=== PATIENT | female | born 1995 | race African-American/Black ===

== ENCOUNTER 2020-12-30 16:22 | Emergency (ER) | payer OTHER ==
[~2020-12-30] VITALS: Ht 165.1 cm; Wt 83.0 kg
[2020-12-30 19:28] LABS: Basophils # (auto) 0 10 ^3/uL (0-0.2); Basophils % (auto) 0.4 % (0.0-2.0); Eosinophils # (auto) 0.1 10 ^3/uL (0-0.8); Eosinophils % (auto) 1.2 % (0.0-7.0); Hematocrit 35.5 % (36.0-46.0); Lymphocytes # (auto) 1.7 10 ^3/uL (0.4-5.4); Lymphocytes % (auto) 24.6 % (10.0-50.0); Mean Corpuscular Hemoglobin 27.4 pg (28.0-32.0); Mean Corpuscular Hgb Conc. 33.9 g/dL (32.0-36.0); Mean Corpuscular Volume 80.7 fL (80.0-100.0); Monocytes # (auto) 0.5 10 ^3/uL (0-1.3); Monocytes % (auto) 6.7 % (0.0-12.0); Neutrophils # (auto) 4.7 10 ^3/uL (1.6-8.6); Neutrophils % (auto) 67.1 % (37.0-80.0); Red Cell Distribution Width 14.1 % (11.8-14.3)
[2020-12-30 21:20] LABS: Urine Bacteria FEW /hpf (None Seen); Urine Blood Negative /uL (Negative); Urine Hyaline Cast FEW /lpf (0 - 2); Urine Specific Gravity 1.022 (1.001-1.035); Urine WBC 1 /hpf (0 - 5)
[2020-12-30 22:27] VITALS: BP 110/62
== END 2020-12-30 22:29 | disposition home or self-care (01) ==
LOC: ER 16:24
DX: O26.893 Other specified pregnancy related conditions, third trimester (principal); Z3A.18 18 weeks gestation of pregnancy
CPT/HCPCS: 36415; 76805; 81001; 84702; 85025

== ENCOUNTER 2021-05-31 00:02 | Observation (INO) | payer OTHER ==
[~2021-05-31] VITALS: Ht 165.1 cm; Wt 108.9 kg
[2021-05-31] MEDS ORDERED: PREN1CAP PO (00:34)
[2021-05-31 01:00] LABS: Urine Bacteria FEW /hpf (None Seen); Urine Blood Negative /uL (Negative); Urine WBC 1 /hpf (0 - 5)
[2021-05-31 01:10] LABS: Alcohol, Urine < 3.0 mg/dL (0-10); Amphetamine Screen, Urine NEGATIVE (NEGATIVE); Barbiturate Scree,Urine NEGATIVE (NEGATIVE); Benzodiazephine Screen, Urine NEGATIVE (NEGATIVE); Cannabinoid Screen, Urine NEGATIVE (NEGATIVE); Cocaine Screen, Urine NEGATIVE (NEGATIVE); Opiate Scree,Urine NEGATIVE (NEGATIVE); Phencyclidine Screen, Urine NEGATIVE (NEGATIVE)
[2021-05-31] MEDS ORDERED: LACTATED RINGER'S 1,000 ML IV STA (01:11)
[2021-05-31] MEDS ORDERED: LACTATED RINGER'S 1,000 ML IV SCH ×2 (01:30)
[2021-05-31] MEDS ORDERED: LACTATED RINGER'S 1,000 ML IV ONE ×2 (01:30)
== END 2021-05-31 02:38 | disposition home or self-care (01) ==
LOC: LDRP 00:02
PROVIDERS: ADMIT Obstetrics & Gynecology; ATTEND Obstetrics & Gynecology
DX: O26.893 Other specified pregnancy related conditions, third trimester (principal); R10.9 Unspecified abdominal pain; Z3A.39 39 weeks gestation of pregnancy
CPT/HCPCS: 59025; 76805; 76818; 80307; 81001; 81002; 96360; G0378